=== PATIENT | female | born 1950 | race Caucasian/White ===

== ENCOUNTER → 2018-05-22 | Outpatient (CLI) | payer BC, OTHER | END | disposition home or self-care (01) | LOC: WOUND 10:20 | PROVIDERS: ATTEND Podiatrist Foot & Ankle Surgery | DX: L89.610 Pressure ulcer of right heel, unstageable (principal); L89.890 Pressure ulcer of other site, unstageable; L97.412 Non-pressure chronic ulcer of right heel and midfoot with fat layer exposed; L97.521 Non-pressure chronic ulcer of other part of left foot limited to breakdown of skin; E78.5 Hyperlipidemia, unspecified; E03.9 Hypothyroidism, unspecified; M86.68 Other chronic osteomyelitis, other site; G35 Multiple sclerosis; Z87.891 Personal history of nicotine dependence | CPT/HCPCS: 11042; 97597; 99215 ==

== ENCOUNTER 2018-05-29 09:07 | Outpatient (CLI) | payer BC | END 2018-05-29 23:59 | disposition home or self-care (01) | LOC: WOUND 09:07 | PROVIDERS: ATTEND Podiatrist Foot & Ankle Surgery | DX: L97.412 Non-pressure chronic ulcer of right heel and midfoot with fat layer exposed (principal); L89.619 Pressure ulcer of right heel, unspecified stage; M46.26 Osteomyelitis of vertebra, lumbar region; M86.68 Other chronic osteomyelitis, other site; G35 Multiple sclerosis; E78.5 Hyperlipidemia, unspecified; E03.9 Hypothyroidism, unspecified; Z87.891 Personal history of nicotine dependence | CPT/HCPCS: 11042 ==

== ENCOUNTER → 2018-06-05 | Outpatient (CLI) | payer BC | END | disposition home or self-care (01) | LOC: WOUND 10:46 | PROVIDERS: ATTEND Podiatrist Foot & Ankle Surgery | DX: L97.412 Non-pressure chronic ulcer of right heel and midfoot with fat layer exposed (principal); L97.521 Non-pressure chronic ulcer of other part of left foot limited to breakdown of skin; L89.619 Pressure ulcer of right heel, unspecified stage; M46.26 Osteomyelitis of vertebra, lumbar region; M86.68 Other chronic osteomyelitis, other site; G35 Multiple sclerosis; E78.5 Hyperlipidemia, unspecified; E03.9 Hypothyroidism, unspecified; Z87.891 Personal history of nicotine dependence | CPT/HCPCS: 11042 ==

== ENCOUNTER → 2018-06-12 | Outpatient (CLI) | payer BC | END | disposition home or self-care (01) | LOC: WOUND 08:53 | PROVIDERS: ATTEND Podiatrist Foot & Ankle Surgery | DX: L89.613 Pressure ulcer of right heel, stage 3 (principal); L97.412 Non-pressure chronic ulcer of right heel and midfoot with fat layer exposed; L97.521 Non-pressure chronic ulcer of other part of left foot limited to breakdown of skin; G35 Multiple sclerosis; E78.5 Hyperlipidemia, unspecified; E03.9 Hypothyroidism, unspecified; M46.26 Osteomyelitis of vertebra, lumbar region; M86.68 Other chronic osteomyelitis, other site; Z87.891 Personal history of nicotine dependence | CPT/HCPCS: 11042 ==

== ENCOUNTER → 2018-06-19 | Outpatient (CLI) | payer BC | END | disposition home or self-care (01) | LOC: WOUND 08:53 | PROVIDERS: ATTEND Podiatrist Foot & Ankle Surgery | DX: L89.613 Pressure ulcer of right heel, stage 3 (principal); L97.412 Non-pressure chronic ulcer of right heel and midfoot with fat layer exposed; L97.521 Non-pressure chronic ulcer of other part of left foot limited to breakdown of skin; G35 Multiple sclerosis; E78.5 Hyperlipidemia, unspecified; E03.9 Hypothyroidism, unspecified; M46.26 Osteomyelitis of vertebra, lumbar region; M86.68 Other chronic osteomyelitis, other site; Z87.891 Personal history of nicotine dependence | CPT/HCPCS: 11042; 97597 ==

== ENCOUNTER 2018-06-26 08:59 | Outpatient (CLI) | payer BC | END 2018-06-26 23:59 | disposition home or self-care (01) | LOC: WOUND 08:59 | PROVIDERS: ATTEND Podiatrist Foot & Ankle Surgery | DX: L89.613 Pressure ulcer of right heel, stage 3 (principal); L97.412 Non-pressure chronic ulcer of right heel and midfoot with fat layer exposed; L97.521 Non-pressure chronic ulcer of other part of left foot limited to breakdown of skin; L97.221 Non-pressure chronic ulcer of left calf limited to breakdown of skin; G35 Multiple sclerosis; L84 Corns and callosities; E78.5 Hyperlipidemia, unspecified; E03.9 Hypothyroidism, unspecified; Z87.891 Personal history of nicotine dependence; M46.26 Osteomyelitis of vertebra, lumbar region | CPT/HCPCS: 11042; 87070; 87077; 87186; 87205 ==

== ENCOUNTER 2018-07-03 08:58 | Outpatient (CLI) | payer BC | END 2018-07-03 23:59 | disposition home or self-care (01) | LOC: WOUND 08:58 | PROVIDERS: ATTEND Podiatrist Foot & Ankle Surgery | DX: L97.412 Non-pressure chronic ulcer of right heel and midfoot with fat layer exposed (principal); L89.613 Pressure ulcer of right heel, stage 3; L97.221 Non-pressure chronic ulcer of left calf limited to breakdown of skin; L03.116 Cellulitis of left lower limb; G35 Multiple sclerosis; L84 Corns and callosities; E78.5 Hyperlipidemia, unspecified; E03.9 Hypothyroidism, unspecified; G62.9 Polyneuropathy, unspecified; M46.26 Osteomyelitis of vertebra, lumbar region; M86.68 Other chronic osteomyelitis, other site; Z87.891 Personal history of nicotine dependence | CPT/HCPCS: 11042 ==

== ENCOUNTER 2018-07-10 09:03 | Outpatient (CLI) | payer BC | END 2018-07-10 23:59 | disposition home or self-care (01) | LOC: WOUND 09:03 | PROVIDERS: ATTEND Podiatrist Foot & Ankle Surgery | DX: L97.412 Non-pressure chronic ulcer of right heel and midfoot with fat layer exposed (principal); L89.613 Pressure ulcer of right heel, stage 3; L97.222 Non-pressure chronic ulcer of left calf with fat layer exposed; L03.116 Cellulitis of left lower limb; G35 Multiple sclerosis; L84 Corns and callosities; R26.1 Paralytic gait; G62.9 Polyneuropathy, unspecified; E78.5 Hyperlipidemia, unspecified; E03.9 Hypothyroidism, unspecified; M86.68 Other chronic osteomyelitis, other site; M46.26 Osteomyelitis of vertebra, lumbar region; Z87.891 Personal history of nicotine dependence | CPT/HCPCS: 11042 ==

== ENCOUNTER → 2018-07-17 | Outpatient (CLI) | payer BC | END | disposition home or self-care (01) | LOC: WOUND 09:02 | PROVIDERS: ATTEND Podiatrist Foot & Ankle Surgery | DX: L97.412 Non-pressure chronic ulcer of right heel and midfoot with fat layer exposed (principal); L97.222 Non-pressure chronic ulcer of left calf with fat layer exposed; L89.613 Pressure ulcer of right heel, stage 3; L03.116 Cellulitis of left lower limb; L84 Corns and callosities; G35 Multiple sclerosis; E78.5 Hyperlipidemia, unspecified; E03.9 Hypothyroidism, unspecified; M46.26 Osteomyelitis of vertebra, lumbar region; M86.68 Other chronic osteomyelitis, other site; G62.9 Polyneuropathy, unspecified; Z87.891 Personal history of nicotine dependence | CPT/HCPCS: 11042 ==

== ENCOUNTER → 2018-07-24 | Outpatient (CLI) | payer BC | END | disposition home or self-care (01) | LOC: WOUND 08:52 | PROVIDERS: ATTEND Podiatrist Foot & Ankle Surgery | DX: L97.412 Non-pressure chronic ulcer of right heel and midfoot with fat layer exposed (principal); L97.222 Non-pressure chronic ulcer of left calf with fat layer exposed; L89.613 Pressure ulcer of right heel, stage 3; L03.116 Cellulitis of left lower limb; L84 Corns and callosities; G35 Multiple sclerosis; E78.5 Hyperlipidemia, unspecified; E03.9 Hypothyroidism, unspecified; M46.26 Osteomyelitis of vertebra, lumbar region; M86.68 Other chronic osteomyelitis, other site; G62.9 Polyneuropathy, unspecified; Z87.891 Personal history of nicotine dependence | CPT/HCPCS: 11042 ==

== ENCOUNTER 2018-07-31 08:54 | Outpatient (CLI) | payer BC | END 2018-07-31 23:59 | disposition home or self-care (01) | LOC: WOUND 08:54 | PROVIDERS: ATTEND Podiatrist Foot & Ankle Surgery | DX: L97.222 Non-pressure chronic ulcer of left calf with fat layer exposed (principal); L97.412 Non-pressure chronic ulcer of right heel and midfoot with fat layer exposed; L03.116 Cellulitis of left lower limb; L84 Corns and callosities; G35 Multiple sclerosis; E03.9 Hypothyroidism, unspecified; E78.5 Hyperlipidemia, unspecified; G62.9 Polyneuropathy, unspecified; M86.8X8 Other osteomyelitis, other site; M46.26 Osteomyelitis of vertebra, lumbar region; Z87.891 Personal history of nicotine dependence | CPT/HCPCS: 11042 ==

== ENCOUNTER 2018-08-07 11:00 | Outpatient (CLI) | payer BC | END 2018-08-07 23:59 | disposition home or self-care (01) | LOC: WOUND 11:00 | PROVIDERS: ATTEND Podiatrist Foot & Ankle Surgery | DX: L97.223 Non-pressure chronic ulcer of left calf with necrosis of muscle (principal); L97.412 Non-pressure chronic ulcer of right heel and midfoot with fat layer exposed; L89.613 Pressure ulcer of right heel, stage 3; S80.812D Abrasion, left lower leg, subsequent encounter; L03.116 Cellulitis of left lower limb; L84 Corns and callosities; G35 Multiple sclerosis; G62.9 Polyneuropathy, unspecified; E78.5 Hyperlipidemia, unspecified; E03.9 Hypothyroidism, unspecified; H35.30 Unspecified macular degeneration; M46.26 Osteomyelitis of vertebra, lumbar region; M86.68 Other chronic osteomyelitis, other site; Z87.891 Personal history of nicotine dependence; X58.XXXD Exposure to other specified factors, subsequent encounter | CPT/HCPCS: 11042; 11043 ==

== ENCOUNTER → 2018-08-14 | Outpatient (CLI) | payer BC | END | disposition home or self-care (01) | LOC: WOUND 09:07 | PROVIDERS: ATTEND Podiatrist Foot & Ankle Surgery | DX: L97.223 Non-pressure chronic ulcer of left calf with necrosis of muscle (principal); L97.412 Non-pressure chronic ulcer of right heel and midfoot with fat layer exposed; L89.613 Pressure ulcer of right heel, stage 3; S80.812D Abrasion, left lower leg, subsequent encounter; L03.116 Cellulitis of left lower limb; L84 Corns and callosities; G35 Multiple sclerosis; G62.9 Polyneuropathy, unspecified; E78.5 Hyperlipidemia, unspecified; E03.9 Hypothyroidism, unspecified; H35.30 Unspecified macular degeneration; M46.26 Osteomyelitis of vertebra, lumbar region; M86.68 Other chronic osteomyelitis, other site; Z87.891 Personal history of nicotine dependence; X58.XXXD Exposure to other specified factors, subsequent encounter | CPT/HCPCS: 11042 ==

== ENCOUNTER → 2018-08-21 | Outpatient (CLI) | payer BC | END | disposition home or self-care (01) | LOC: WOUND 08:59 | PROVIDERS: ATTEND Podiatrist Foot & Ankle Surgery | DX: L97.223 Non-pressure chronic ulcer of left calf with necrosis of muscle (principal); L97.412 Non-pressure chronic ulcer of right heel and midfoot with fat layer exposed; L89.613 Pressure ulcer of right heel, stage 3; S80.812D Abrasion, left lower leg, subsequent encounter; L03.116 Cellulitis of left lower limb; L84 Corns and callosities; G35 Multiple sclerosis; G62.9 Polyneuropathy, unspecified; E78.5 Hyperlipidemia, unspecified; E03.9 Hypothyroidism, unspecified; H35.30 Unspecified macular degeneration; M46.26 Osteomyelitis of vertebra, lumbar region; M86.68 Other chronic osteomyelitis, other site; Z87.891 Personal history of nicotine dependence; X58.XXXD Exposure to other specified factors, subsequent encounter | CPT/HCPCS: 11042; 11043 ==

== ENCOUNTER → 2018-08-28 | Outpatient (CLI) | payer BC | END | disposition home or self-care (01) | LOC: WOUND 09:02 | PROVIDERS: ATTEND Podiatrist Foot & Ankle Surgery | DX: L97.223 Non-pressure chronic ulcer of left calf with necrosis of muscle (principal); L97.412 Non-pressure chronic ulcer of right heel and midfoot with fat layer exposed; L89.613 Pressure ulcer of right heel, stage 3; S80.812D Abrasion, left lower leg, subsequent encounter; L03.116 Cellulitis of left lower limb; L84 Corns and callosities; G35 Multiple sclerosis; G62.9 Polyneuropathy, unspecified; E78.5 Hyperlipidemia, unspecified; E03.9 Hypothyroidism, unspecified; H35.30 Unspecified macular degeneration; M46.26 Osteomyelitis of vertebra, lumbar region; M86.68 Other chronic osteomyelitis, other site; Z87.891 Personal history of nicotine dependence; X58.XXXD Exposure to other specified factors, subsequent encounter | CPT/HCPCS: 11042; 11043; 87070; 87077; 87205 ==

== ENCOUNTER 2018-09-11 09:00 | Outpatient (CLI) | payer BC | END 2018-09-11 23:59 | disposition home or self-care (01) | LOC: WOUND 09:00 | PROVIDERS: ATTEND Podiatrist Foot & Ankle Surgery | DX: L97.412 Non-pressure chronic ulcer of right heel and midfoot with fat layer exposed (principal); L89.613 Pressure ulcer of right heel, stage 3; L97.223 Non-pressure chronic ulcer of left calf with necrosis of muscle; L84 Corns and callosities; G35 Multiple sclerosis; G62.9 Polyneuropathy, unspecified; E78.5 Hyperlipidemia, unspecified; E03.9 Hypothyroidism, unspecified; H35.30 Unspecified macular degeneration; M46.26 Osteomyelitis of vertebra, lumbar region; M86.68 Other chronic osteomyelitis, other site; Z87.891 Personal history of nicotine dependence | CPT/HCPCS: 11042; 11043 ==

== ENCOUNTER 2018-09-18 09:30 | Outpatient (CLI) | payer BC | END 2018-09-18 23:59 | disposition home or self-care (01) | LOC: WOUND 09:30 | PROVIDERS: ATTEND Podiatrist Foot & Ankle Surgery | DX: L97.223 Non-pressure chronic ulcer of left calf with necrosis of muscle (principal); L97.412 Non-pressure chronic ulcer of right heel and midfoot with fat layer exposed; L89.613 Pressure ulcer of right heel, stage 3; L03.116 Cellulitis of left lower limb; L84 Corns and callosities; G35 Multiple sclerosis; G62.9 Polyneuropathy, unspecified; E78.5 Hyperlipidemia, unspecified; H35.30 Unspecified macular degeneration; M46.26 Osteomyelitis of vertebra, lumbar region; M86.68 Other chronic osteomyelitis, other site; Z87.891 Personal history of nicotine dependence; X58.XXXD Exposure to other specified factors, subsequent encounter | CPT/HCPCS: 11042; 11043 ==

== ENCOUNTER 2018-09-25 09:32 | Outpatient (CLI) | payer BC | END 2018-09-25 23:59 | disposition home or self-care (01) | LOC: WOUND 09:32 | PROVIDERS: ATTEND Podiatrist Foot & Ankle Surgery | DX: L97.223 Non-pressure chronic ulcer of left calf with necrosis of muscle (principal); L97.412 Non-pressure chronic ulcer of right heel and midfoot with fat layer exposed; L89.613 Pressure ulcer of right heel, stage 3; L03.116 Cellulitis of left lower limb; L84 Corns and callosities; G35 Multiple sclerosis; G62.9 Polyneuropathy, unspecified; E78.5 Hyperlipidemia, unspecified; H35.30 Unspecified macular degeneration; M46.26 Osteomyelitis of vertebra, lumbar region; M86.68 Other chronic osteomyelitis, other site; Z87.891 Personal history of nicotine dependence; X58.XXXD Exposure to other specified factors, subsequent encounter | CPT/HCPCS: 11042; 11043 ==

== ENCOUNTER 2018-10-02 09:02 | Outpatient (CLI) | payer BC | END 2018-10-02 23:59 | disposition home or self-care (01) | LOC: WOUND 09:02 | PROVIDERS: ATTEND Podiatrist Foot & Ankle Surgery | DX: L97.223 Non-pressure chronic ulcer of left calf with necrosis of muscle (principal); L97.412 Non-pressure chronic ulcer of right heel and midfoot with fat layer exposed; L89.613 Pressure ulcer of right heel, stage 3; L03.116 Cellulitis of left lower limb; L84 Corns and callosities; G35 Multiple sclerosis; G62.9 Polyneuropathy, unspecified; E78.5 Hyperlipidemia, unspecified; H35.30 Unspecified macular degeneration; M46.26 Osteomyelitis of vertebra, lumbar region; Z87.891 Personal history of nicotine dependence; M86.68 Other chronic osteomyelitis, other site; X58.XXXD Exposure to other specified factors, subsequent encounter | CPT/HCPCS: 11042 ==

== ENCOUNTER 2018-10-09 08:58 | Outpatient (CLI) | payer BC | END 2018-10-09 23:59 | disposition home or self-care (01) | LOC: WOUND 08:58 | PROVIDERS: ATTEND Podiatrist Foot & Ankle Surgery | DX: L97.223 Non-pressure chronic ulcer of left calf with necrosis of muscle (principal); L97.412 Non-pressure chronic ulcer of right heel and midfoot with fat layer exposed; L03.116 Cellulitis of left lower limb; L89.613 Pressure ulcer of right heel, stage 3; L84 Corns and callosities; G35 Multiple sclerosis; G62.9 Polyneuropathy, unspecified; E78.5 Hyperlipidemia, unspecified; H35.30 Unspecified macular degeneration; M46.26 Osteomyelitis of vertebra, lumbar region; Z87.891 Personal history of nicotine dependence; M86.68 Other chronic osteomyelitis, other site; X58.XXXD Exposure to other specified factors, subsequent encounter | CPT/HCPCS: 11042 ==

== ENCOUNTER 2018-10-16 10:07 | Outpatient (CLI) | payer BC | END 2018-10-16 23:59 | disposition home or self-care (01) | LOC: CFH 10:07 | PROVIDERS: ATTEND Podiatrist Foot & Ankle Surgery | DX: M77.31 Calcaneal spur, right foot (principal); M79.89 Other specified soft tissue disorders ==

== ENCOUNTER → 2018-12-25 | Outpatient (CLI) | payer BC | END | disposition home or self-care (01) | LOC: WOUND 09:16 | PROVIDERS: ATTEND Podiatrist Foot & Ankle Surgery | DX: L89.613 Pressure ulcer of right heel, stage 3 (principal); L97.223 Non-pressure chronic ulcer of left calf with necrosis of muscle; L97.412 Non-pressure chronic ulcer of right heel and midfoot with fat layer exposed; L84 Corns and callosities; G35 Multiple sclerosis; G62.9 Polyneuropathy, unspecified; E78.5 Hyperlipidemia, unspecified; H35.30 Unspecified macular degeneration; M46.26 Osteomyelitis of vertebra, lumbar region; Z87.891 Personal history of nicotine dependence; M86.68 Other chronic osteomyelitis, other site; E03.9 Hypothyroidism, unspecified | CPT/HCPCS: 11042 ==

== ENCOUNTER → 2019-01-08 | Outpatient (CLI) | payer BC | END | disposition home or self-care (01) | LOC: WOUND 08:56 | PROVIDERS: ATTEND Podiatrist Foot & Ankle Surgery | DX: L89.613 Pressure ulcer of right heel, stage 3 (principal); L97.223 Non-pressure chronic ulcer of left calf with necrosis of muscle; L97.412 Non-pressure chronic ulcer of right heel and midfoot with fat layer exposed; L84 Corns and callosities; G35 Multiple sclerosis; G62.9 Polyneuropathy, unspecified; E78.5 Hyperlipidemia, unspecified; H35.30 Unspecified macular degeneration; M46.26 Osteomyelitis of vertebra, lumbar region; M86.68 Other chronic osteomyelitis, other site; E03.9 Hypothyroidism, unspecified; Z87.891 Personal history of nicotine dependence | CPT/HCPCS: 11042; 87070; 87077; 87186; 87205 ==

== ENCOUNTER → 2019-01-15 | Outpatient (CLI) | payer BC | END | disposition home or self-care (01) | LOC: WOUND 09:02 | PROVIDERS: ATTEND Podiatrist Foot & Ankle Surgery | DX: L89.613 Pressure ulcer of right heel, stage 3 (principal); L97.223 Non-pressure chronic ulcer of left calf with necrosis of muscle; L97.412 Non-pressure chronic ulcer of right heel and midfoot with fat layer exposed; L84 Corns and callosities; G35 Multiple sclerosis; G62.9 Polyneuropathy, unspecified; E78.5 Hyperlipidemia, unspecified; H35.30 Unspecified macular degeneration; M46.26 Osteomyelitis of vertebra, lumbar region; M86.68 Other chronic osteomyelitis, other site; E03.9 Hypothyroidism, unspecified; Z87.891 Personal history of nicotine dependence | CPT/HCPCS: 11042 ==

== ENCOUNTER → 2019-01-22 | Outpatient (CLI) | payer BC | END | disposition home or self-care (01) | LOC: WOUND 09:00 | PROVIDERS: ATTEND Podiatrist Foot & Ankle Surgery | DX: L89.613 Pressure ulcer of right heel, stage 3 (principal); L97.223 Non-pressure chronic ulcer of left calf with necrosis of muscle; L97.412 Non-pressure chronic ulcer of right heel and midfoot with fat layer exposed; L84 Corns and callosities; G35 Multiple sclerosis; G62.9 Polyneuropathy, unspecified; E78.5 Hyperlipidemia, unspecified; H35.30 Unspecified macular degeneration; M86.171 Other acute osteomyelitis, right ankle and foot; M46.26 Osteomyelitis of vertebra, lumbar region; M86.68 Other chronic osteomyelitis, other site; E03.9 Hypothyroidism, unspecified; Z87.891 Personal history of nicotine dependence | CPT/HCPCS: 11042 ==

== ENCOUNTER → 2019-02-05 | Outpatient (CLI) | payer BC | END | disposition home or self-care (01) | LOC: WOUND 08:50 | PROVIDERS: ATTEND Podiatrist Foot & Ankle Surgery | DX: L89.613 Pressure ulcer of right heel, stage 3 (principal); L97.223 Non-pressure chronic ulcer of left calf with necrosis of muscle; L97.412 Non-pressure chronic ulcer of right heel and midfoot with fat layer exposed; L84 Corns and callosities; G35 Multiple sclerosis; G62.9 Polyneuropathy, unspecified; E78.5 Hyperlipidemia, unspecified; H35.30 Unspecified macular degeneration; M86.171 Other acute osteomyelitis, right ankle and foot; M46.26 Osteomyelitis of vertebra, lumbar region; M86.68 Other chronic osteomyelitis, other site; E03.9 Hypothyroidism, unspecified; Z87.891 Personal history of nicotine dependence | CPT/HCPCS: 11042 ==

== ENCOUNTER → 2019-02-12 | Outpatient (CLI) | payer BC | END | disposition home or self-care (01) | LOC: WOUND 09:27 | PROVIDERS: ATTEND Podiatrist Foot & Ankle Surgery | DX: L89.613 Pressure ulcer of right heel, stage 3 (principal); L97.223 Non-pressure chronic ulcer of left calf with necrosis of muscle; L97.412 Non-pressure chronic ulcer of right heel and midfoot with fat layer exposed; L84 Corns and callosities; G35 Multiple sclerosis; G62.9 Polyneuropathy, unspecified; E78.5 Hyperlipidemia, unspecified; H35.30 Unspecified macular degeneration; M86.171 Other acute osteomyelitis, right ankle and foot; M46.26 Osteomyelitis of vertebra, lumbar region; M86.68 Other chronic osteomyelitis, other site; E03.9 Hypothyroidism, unspecified; Z87.891 Personal history of nicotine dependence | CPT/HCPCS: 11042 ==

== ENCOUNTER → 2019-02-19 | Outpatient (CLI) | payer BC | END | disposition home or self-care (01) | LOC: WOUND 08:53 | PROVIDERS: ATTEND Podiatrist Foot & Ankle Surgery | DX: L89.613 Pressure ulcer of right heel, stage 3 (principal); L97.412 Non-pressure chronic ulcer of right heel and midfoot with fat layer exposed; L97.223 Non-pressure chronic ulcer of left calf with necrosis of muscle; M86.171 Other acute osteomyelitis, right ankle and foot; L03.115 Cellulitis of right lower limb; G62.9 Polyneuropathy, unspecified; E78.5 Hyperlipidemia, unspecified; E03.9 Hypothyroidism, unspecified; M46.26 Osteomyelitis of vertebra, lumbar region; H35.30 Unspecified macular degeneration; Z87.891 Personal history of nicotine dependence | CPT/HCPCS: 11042; 87070; 87075; 87077; 87186; 87205 ==

== ENCOUNTER → 2019-03-05 | Outpatient (CLI) | payer BC | END | disposition home or self-care (01) | LOC: WOUND 08:56 | PROVIDERS: ATTEND Podiatrist Foot & Ankle Surgery | DX: L89.613 Pressure ulcer of right heel, stage 3 (principal); L97.412 Non-pressure chronic ulcer of right heel and midfoot with fat layer exposed; L97.223 Non-pressure chronic ulcer of left calf with necrosis of muscle; M86.171 Other acute osteomyelitis, right ankle and foot; L03.115 Cellulitis of right lower limb; G62.9 Polyneuropathy, unspecified; E78.5 Hyperlipidemia, unspecified; E03.9 Hypothyroidism, unspecified; M46.26 Osteomyelitis of vertebra, lumbar region; H35.30 Unspecified macular degeneration; Z87.891 Personal history of nicotine dependence | CPT/HCPCS: 11042 ==

== ENCOUNTER 2019-03-12 08:55 | Outpatient (CLI) | payer BC | END 2019-03-12 23:59 | disposition home or self-care (01) | LOC: WOUND 08:55 | PROVIDERS: ATTEND Podiatrist Foot & Ankle Surgery | DX: L89.613 Pressure ulcer of right heel, stage 3 (principal); L97.412 Non-pressure chronic ulcer of right heel and midfoot with fat layer exposed; L97.223 Non-pressure chronic ulcer of left calf with necrosis of muscle; M86.171 Other acute osteomyelitis, right ankle and foot; L03.115 Cellulitis of right lower limb; G62.9 Polyneuropathy, unspecified; E78.5 Hyperlipidemia, unspecified; E03.9 Hypothyroidism, unspecified; M46.26 Osteomyelitis of vertebra, lumbar region; H35.30 Unspecified macular degeneration; Z87.891 Personal history of nicotine dependence | CPT/HCPCS: 11042 ==

== ENCOUNTER 2019-03-19 09:10 | Outpatient (CLI) | payer BC ==
[2019-03-19] MEDS ORDERED: BACL-19 PO ×2 (13:46)
[2019-03-19] MEDS ORDERED: TRAM50TA2 PO (13:46)
[2019-03-19] MEDS ORDERED: GABA-827 PO ×2 (13:46)
[2019-03-19] MEDS ORDERED: DOXY-162 PO (13:46)
[2019-03-19] MEDS ORDERED: TIZA4TAB2 PO (13:46)
== END 2019-03-19 23:59 | disposition home or self-care (01) ==
LOC: WOUND 09:10
PROVIDERS: ATTEND Podiatrist Foot & Ankle Surgery
DX: L89.613 Pressure ulcer of right heel, stage 3 (principal); L97.412 Non-pressure chronic ulcer of right heel and midfoot with fat layer exposed; L97.223 Non-pressure chronic ulcer of left calf with necrosis of muscle; M86.171 Other acute osteomyelitis, right ankle and foot; L03.115 Cellulitis of right lower limb; G62.9 Polyneuropathy, unspecified; E78.5 Hyperlipidemia, unspecified; E03.9 Hypothyroidism, unspecified; M46.26 Osteomyelitis of vertebra, lumbar region; H35.30 Unspecified macular degeneration; Z87.891 Personal history of nicotine dependence
CPT/HCPCS: 11042

== ENCOUNTER 2019-03-25 05:54 | Day surgery (SDC) | payer BC ==
[~2019-03-25] VITALS: Ht 174 cm; Wt 66.0 kg
[~2019-03-25 05:54] MED LIST: BACL-19 PO; DOXY-162 PO; GABA-827 PO; TIZA4TAB2 PO; TRAM50TA2 PO
[2019-03-25 06:50] VITALS: BP 145/77
[2019-03-25] MEDS ORDERED: PROPOFOL 50 ML ONE (06:53)
[2019-03-25] MEDS ORDERED: FENTANYL PF 250 MCG/5ML ONE (06:54)
[2019-03-25] MEDS ORDERED: LACTATED RINGERS 1,000 ML IV SCH (06:55)
[2019-03-25] MEDS ORDERED: BUPIVACAINE/PF 0.5% ONE (06:57)
[2019-03-25] MEDS ORDERED: LIDOCAINE 1%-EPI 1:100K, 20ML ONE (06:57)
[2019-03-25] MEDS ORDERED: CEFAZOLIN 1,000 MG ONE (07:00)
[2019-03-25] MEDS ORDERED: METOPROLOL 1 MG/ML, 5ML IV PRN (07:30)
[2019-03-25] MEDS ORDERED: PROMETHAZINE 25 MG/ML, 1ML IV PRN (07:30)
[2019-03-25] MEDS ORDERED: MIDAZOLAM 1 MG/ML, 2ML IV PRN (07:30)
[2019-03-25] MEDS ORDERED: FENTANYL PF 100 MCG/2ML IV PRN (07:30)
[2019-03-25] MEDS ORDERED: DIAZEPAM 5 MG/ML, 2ML IVPush PRN (07:30)
[2019-03-25] MEDS ORDERED: OXYcodone 5 MG/5 ML ORAL.SOL UDC PO PRN (07:30)
[2019-03-25] MEDS ORDERED: ACETAMINOPHEN 325 MG TABLET PO PRN (07:30)
[2019-03-25] MEDS ORDERED: ONDANSETRON 2MG/ML, 2ML IV PRN (07:30)
[2019-03-25] MEDS ORDERED: DIPHENHYDRAMINE 50 MG/ML, 1ML IVPush PRN (07:30)
[2019-03-25] MEDS ORDERED: EPHEDRINE 50 MG/ML, 1ML IVPush PRN (07:30)
[2019-03-25] MEDS ORDERED: EPHEDRINE 50 MG/ML, 1ML IM PRN (07:30)
[2019-03-25] MEDS ORDERED: MORPHINE SULFATE 4 MG/ML, 1ML IVPush PRN (07:30)
[2019-03-25] MEDS ORDERED: hydrALAzine 20 MG/ML, 1ML IV PRN (07:30)
[2019-03-25] MEDS ORDERED: ONDANSETRON ODT 8 MG PO PRN (07:30)
[2019-03-25] MEDS ORDERED: ONDANSETRON 2MG/ML, 2ML ONE (07:33)
[2019-03-25] MEDS ORDERED: PROPOFOL 10 MG/ML, 20ML ONE (07:34)
== END 2019-03-25 09:50 | disposition home or self-care (01) ==
LOC: OUT 05:54
PROVIDERS: ATTEND Podiatrist Foot & Ankle Surgery
DX: M86.271 Subacute osteomyelitis, right ankle and foot (principal)
CPT/HCPCS: 20245; 87070; 87075; 87102; 87205; 88307; 88311; 93005; J0690; J2405; J2704; J3010; J3490; J7120

== ENCOUNTER → 2019-04-02 | Outpatient (CLI) | payer BC | END | disposition home or self-care (01) | LOC: WOUND 08:56 | PROVIDERS: ATTEND Podiatrist Foot & Ankle Surgery | DX: L89.613 Pressure ulcer of right heel, stage 3 (principal); L97.223 Non-pressure chronic ulcer of left calf with necrosis of muscle; M86.171 Other acute osteomyelitis, right ankle and foot; G62.9 Polyneuropathy, unspecified; E78.5 Hyperlipidemia, unspecified; E03.9 Hypothyroidism, unspecified; M46.26 Osteomyelitis of vertebra, lumbar region; H35.30 Unspecified macular degeneration; L84 Corns and callosities; G35 Multiple sclerosis; Z87.891 Personal history of nicotine dependence | CPT/HCPCS: 11042 ==

== ENCOUNTER 2019-04-09 09:00 | Outpatient (CLI) | payer BC | END 2019-04-09 23:59 | disposition home or self-care (01) | LOC: WOUND 09:00 | PROVIDERS: ATTEND Podiatrist Foot & Ankle Surgery | DX: L89.613 Pressure ulcer of right heel, stage 3 (principal); L97.412 Non-pressure chronic ulcer of right heel and midfoot with fat layer exposed; L84 Corns and callosities; E78.5 Hyperlipidemia, unspecified; E03.9 Hypothyroidism, unspecified; M46.26 Osteomyelitis of vertebra, lumbar region; G35 Multiple sclerosis; G62.9 Polyneuropathy, unspecified; H35.30 Unspecified macular degeneration; Z88.0 Allergy status to penicillin; Z88.2 Allergy status to sulfonamides; Z87.891 Personal history of nicotine dependence | CPT/HCPCS: 11042; 11045 ==

== ENCOUNTER 2019-04-16 09:09 | Outpatient (CLI) | payer BC | END 2019-04-16 23:59 | disposition home or self-care (01) | LOC: WOUND 09:09 | PROVIDERS: ATTEND Podiatrist Foot & Ankle Surgery | DX: L89.613 Pressure ulcer of right heel, stage 3 (principal); L97.412 Non-pressure chronic ulcer of right heel and midfoot with fat layer exposed; M86.171 Other acute osteomyelitis, right ankle and foot; M46.26 Osteomyelitis of vertebra, lumbar region; E78.5 Hyperlipidemia, unspecified; E03.9 Hypothyroidism, unspecified; G35 Multiple sclerosis; G62.9 Polyneuropathy, unspecified; H35.30 Unspecified macular degeneration; Z87.891 Personal history of nicotine dependence; Z88.0 Allergy status to penicillin; Z88.2 Allergy status to sulfonamides | CPT/HCPCS: 11042 ==

== ENCOUNTER 2019-04-23 09:03 | Outpatient (CLI) | payer BC | END 2019-04-23 23:59 | disposition home or self-care (01) | LOC: WOUND 09:03 | PROVIDERS: ATTEND Podiatrist Foot & Ankle Surgery | DX: L89.613 Pressure ulcer of right heel, stage 3 (principal); L97.412 Non-pressure chronic ulcer of right heel and midfoot with fat layer exposed; M86.171 Other acute osteomyelitis, right ankle and foot; M46.26 Osteomyelitis of vertebra, lumbar region; E78.5 Hyperlipidemia, unspecified; E03.9 Hypothyroidism, unspecified; G35 Multiple sclerosis; G62.9 Polyneuropathy, unspecified; H35.30 Unspecified macular degeneration; Z87.891 Personal history of nicotine dependence; Z88.0 Allergy status to penicillin; Z88.2 Allergy status to sulfonamides | CPT/HCPCS: 11042 ==